=== PATIENT | male | born 1970 | race Caucasian/White ===

== ENCOUNTER 2016-11-30 21:43 | Inpatient (IN) ==
[2016-12-01] MEDS ORDERED: Albuterol 2.5 MG/3 ML NEBULIZER IH PRN (01:24)
[2016-12-01] MEDS ORDERED: SUMAtriptan succinate 50 MG TABLET PO PRN (01:24)
[2016-12-01] MEDS ORDERED: Naloxone 0.4 MG/ML INJ IVP PRN (01:25)
--- NOTE | 2016-12-01 01:35 | Internal Med History&Physical ---
Date of Encounter: 12/01/16 Time of Encounter: 01:31 Assessment and Plan (1) TAYLER (acute kidney injury) Current visit: No Status: Acute suspect pre-renal, IVF, check renal US to r/o post-renal, trend Cr (2) UTI (urinary tract infection) Current visit: Yes Status: Acute UA with pyuria, cx pend, empiric rocephin given LUTs symptoms Qualifiers: Qualified Code(s): N39.0 - Urinary tract infection, site not specified (3) Seizures Current visit: No Status: Chronic check valproate level with a.m labs given unsteadiness on feet (4) Hypertension Current visit: No Status: Chronic hold ACEI given Tayler Qualifiers: Hypertension type: essential hypertension Qualified Code(s): I10 - Essential (primary) hypertension Internal Medicine - H&P: HPI Chief complaint: light headedness History of present illness: Mr. Lane is a 46 year old male with hx of seizures, depression/anxiety, HTN who presented to the [facility] ED for symptoms of dizziness and near fall acutely yesterday. Was found to have an TAYLER, Cr 2.42 (baseline 1). He mentioned that his legs gave out and was weak yesterday. He had been fine the day prior. He denies any decreased PO intake but note of some LUTs symptoms and having issues with having to urinate. In the ED, he had a lozada placed. Past Med Surg Social Fam HX - Past Medical History Medical history: glaucoma, hypertension, seizures, other Psychiatric history: anxiety - Past Surgical History Surgical History: cholecystectomy, other - Social History Smoking Status: Current some day smoker Smokeless Tobacco Status: Yes Alcohol use: none Drug use: none - Family History Mother Hx Family Cardiac Disorders: Yes (NH, HTN, HLD) Hx Family Respiratory Disorders: No Hx Family Cancer: No Hx Family GI Disorders: No Hx Family Genitourinary Disorders: No Hx Family Endocrine Disorder: Yes (diabetes) Hx Family Musculoskeletal Disorders: No Hx Family Neuromuscular Disorders: No Hx Family Neurologic Disorders: No Hx Family HEENT Disorders: No Hx Family Autoimmune Disorders: No Hx Family Reproductive Disorders: No Hx Family Psychosocial Disorders: No Hx Family Medical Disorders: No Father Hx Family Cardiac Disorders: Yes (CVA, HTN) Hx Family Respiratory Disorders: Yes (Emphysema) Hx Family Cancer: No Hx Family GI Disorders: Yes (Hiatal Hernia) Hx Family Genitourinary Disorders: No Hx Family Endocrine Disorder: Yes (diabetes) Hx Family Musculoskeletal Disorders: No Hx Family Neuromuscular Disorders: No Hx Family Neurologic Disorders: No Hx Family HEENT Disorders: No Hx Family Autoimmune Disorders: No Hx Family Reproductive Disorders: No Hx Family Psychosocial Disorders: No Hx Family Medical Disorders: No Internal Medicine - H&P: Meds Albuterol Neb [Proventil Neb] 2.5 mg IH Q6H PRN 12/28/15 [History] Albuterol Sulfate [Proair Hfa] 2 puff IH Q4H PRN 12/28/15 [History] Allopurinol [Zyloprim 300 MG] 300 mg PO DAILY 12/28/15 [History] Amitriptyline [Elavil] 25 mg PO HS 12/28/15 [History] Atorvastatin [Lipitor] 40 mg PO HS 12/28/15 [History] Baclofen [Lioresal] 10 mg PO TID 12/28/15 [History] Citalopram Hydrobromide [Citalopram HBr] 40 mg PO DAILY 12/28/15 [History] Divalproex (12 HR) [Depakote (12 HR)] 1,000 mg PO HS 12/28/15 [History] Divalproex (12 HR) [Depakote (12 HR)] 500 mg PO QAM 12/28/15 [History] Docusate Sodium [Dok] 100 mg PO BID PRN 12/28/15 [History] Gabapentin [Neurontin] 900 mg PO TID 12/28/15 [History] Lisinopril [Zestril] 40 mg PO DAILY 12/28/15 [History] Pantoprazole Sodium [Protonix] 40 mg PO DAILY 12/28/15 [History] Ropinirole HCl [Requip] 2 mg PO HS 12/28/15 [History] SUMAtriptan Succinate [Imitrex] 100 mg PO DAILY PRN 12/28/15 [History] diazePAM [Valium] 5 mg PO BID 12/28/15 [History] Levalbuterol Neb [Xopenex Neb] 1.25 mg IH [id number] vial.neb 01/04/16 [Rx] Oxycodone HCl/Acetaminophen [Percocet 5-325 mg Tablet] 1 each PO Q6H 11/30/16 [ History] Allergies No Known Allergies Allergy (Verified 02/11/16 20:01) All Systems PM: A 10-system review of systems was performed and is negative for pertinent findings except as documented above in the HPI. Review of systems: ROS 14 point review of systems reviewed as best as possible given presentation. Pertinent positive or negative as per HPI or otherwise reviewed as negative - Constitutional Vitals: Temp Pulse Resp BP Pulse Ox 98.1 F 93 18 96/62 94 11/30/16 23:33 11/30/16 23:33 11/30/16 23:33 11/30/16 23:33 11/30/16 23:33 Exam: General - AAO x 3 Psych - Appropriate affect/speech. No agitation Eyes - JUDITH. Eye lids intact. No scleral icterus ENT - Oral mucosa pink, dentition intact. External ear clear/dry/intact. No thyromegaly Lymphatics - No cervical/inguinal lympadenopathy Neuro - No gross peripheral or central neuro deficits with intact CN 2-12 exam Heart - Sinus. RRR. S1 and S2 present. No added HS/murmurs appreciated. No elevated JVD appreciated. No calf swellings/erythema Lung - Adequate air entry b/l, No crackes/wheezes appreciated GI - Soft, non-tender. No hepatosplenomegaly/ascites. BS+ - No CVA/suprapubic tenderness or palpable bladder distension Skin - Intact. No rash/petechiae/ecchymosis. Warm extremities MSK - Joints with normal ROM. No joint swellings
[2016-12-01] MEDS: 0.9 % Sodium Chloride 1,000 ML IVC SCH ×3 (03:13→16:45)
[2016-12-01] MEDS ORDERED: Levalbuterol Neb 1.25 MG/3 ML IH SCH (04:00)
[2016-12-01 04:05] LABS: Basophils # 0.1 K/mcL (0.0-0.2); Basophils % 0.9 %; Eosinophils # 0.2 K/mcL (0.0-0.6); Eosinophils % 2.3 %; Hematocrit 46.2 % (37.5-50.1); Hemoglobin 14.6 g/dL (12.9-16.9); Immature Granulocytes % 0.8 % (0-4); Lymphocytes # 3.1 K/mcL (0.6-4.6); Lymphocytes % 39.8 %; Mean Corpuscular HGB Conc 31.6 g/dL (31.6-35.5); Mean Corpuscular Hemoglobin 30.5 pg (28.0-33.3); Mean Corpuscular Volume 96.7 fL (83.0-100.0); Monocytes % 13.2 %; Neutrophils # 3.4 K/mcL (1.6-8.9); Platelet Count 175 K/mcL (140-400); Red Blood Count 4.78 M/mcL (4.19-5.50); Red Cell Distribution Width 14.6 % (11.5-14.5)
[2016-12-01 04:10] LABS: Bilirubin,Urine Negative (Negative); Blood,Urine Trace (Negative); Clarity,Urine Cloudy (Clear); Color,Urine Yellow (Yellow); Glucose,Urine (UA) Normal (Normal); Ketones,Urine Negative (Negative); Leukocyte Esterase,Urine Negative (Negative); Nitrite,Urine Negative (Negative); PH,Urine 5.5 pH Units (5.0-8.0); Protein,Urine Trace mg/dL (Neg-Trace); Specific Gravity,Urine 1.018 (1.010-1.025); Urobilinogen,Urine Normal (Normal)
[2016-12-01 04:12] LABS: Bacteria,Urine None Seen per hpf (None-Few); Squamous Epithelial Cell,Urine Many per lpf (None-Few); WBC,Urine 15-30 per hpf (0-3)
[2016-12-01 04:16] LABS: Calcium 8.7 mg/dL (8.6-10.8); Potassium 4.3 mEq/L (3.5-4.5)
[2016-12-01 04:55] LABS: Valproate 36.71 mcg/mL (50-100)
[2016-12-01] MEDS: *HR* Heparin 5,000 UNIT/ML VIAL SQ SCH ×2 (06:02→17:43)
[2016-12-01] MEDS: diazePAM 5 MG TABLET PO SCH ×2 (09:16→20:47)
[2016-12-01] MEDS: Gabapentin 300 MG CAPSULE PO SCH ×3 (09:16→20:46)
[2016-12-01] MEDS: Divalproex (12 HR) 500 MG TABLET PO SCH (09:16)
[2016-12-01] MEDS: Baclofen 10 MG TABLET PO SCH ×3 (09:19→20:46)
[2016-12-01] MEDS: *HR* OxyCODONE/APAP 5/325 TABLET PO PRN ×3 (09:19→21:49)
--- NOTE | 2016-12-01 17:51 | Event Note ---
Date of Encounter: 12/01/16 Time of Encounter: 17:15 Patient seen and examined. On examination, patient sitting upright in bed conversing with his family. Patient endorsing pain to the left lower quadrant of his abdomen but states his pain is currently controlled. He states he has had 2 bowel movements today that were normal. Ramirez catheter in place. Urinalysis consistent with UTI-will continue Rocephin and await culture. Acute kidney injury slowly improving. Chest x-ray negative. Patient stating that when he stands up he continues to feel weak and lightheaded and dizzy. Maintain follow-up cautions. Patient stating his last seizure was 3-4 days ago and was consistent with his normal seizures. Patient is currently endorsing shortness of breath above his norm. He is currently on supplemental oxygen. He states that he wants to ask his primary care provider to set him up with oxygen. In review of his chart, patient just had PFTs per Dr. Mojica 2 months ago that revealed normal spirometry, no response to bronchodilators, lung volumes normal and was unremarkable. Chest x-ray revealing hypoinflated lungs with atelectasis, will add incentive spirometry. At home, patient is on albuterol puffer as well as albuterol nebulizer as the only treatment for his COPD at this time. Patient continues to use smokeless tobacco but also still smokes cigarettes. He did not want to discuss smoking cessation. We will obtain an abdominal CT given that the patient has left lower quadrant pain and tenderness status post 2 normal bowel movements today as well as difficulty with urination which is a new symptom for this patient. EXAMINATION: SINGLE VIEW OF THE CHEST 11/30/2016 8:26 pm HISTORY: Weakness with near syncope XR/XR chest 1V portable IMPRESSION: Hypoinflated lungs and subsegmental atelectasis. D/ / Morro Ricks MD / Morro Ricks MD Interpreting Provider: Morro Ricks MD
[2016-12-01] MEDS ORDERED: rOPINIRole 1 MG TABLET PO SCH (21:00)
[2016-12-01] MEDS ORDERED: Divalproex (12 HR) 500 MG TABLET PO SCH (21:00)
[2016-12-02] MEDS: 0.9 % Sodium Chloride 1,000 ML IVC SCH (02:15)
[2016-12-02 05:04] LABS: BUN/Creatinine Ratio 14 (6-26); Calcium 8.3 mg/dL (8.6-10.8); Carbon Dioxide 28 mEq/L (19-29); Chloride 106 mEq/L (98-109); Glucose 135 mg/dL (70-99); Osmolality,Calculated 293 (280-300); Potassium 4.6 mEq/L (3.5-4.5); Sodium 140 mEq/L (136-145); eGFR For African Americans > 60 (> 60); eGFR For Non-African Americans > 60 (> 60)
[2016-12-02 05:20] LABS: Blood Urea Nitrogen 14 mg/dL (8-26)
[2016-12-02] MEDS: *HR* Heparin 5,000 UNIT/ML VIAL SQ SCH (05:57)
[2016-12-02] MEDS: Gabapentin 300 MG CAPSULE PO SCH (08:39)
[2016-12-02] MEDS: Divalproex (12 HR) 500 MG TABLET PO SCH (08:40)
[2016-12-02] MEDS: diazePAM 5 MG TABLET PO SCH (08:40)
[2016-12-02] MEDS: Baclofen 10 MG TABLET PO SCH (08:40)
[2016-12-02] MEDS: *HR* OxyCODONE/APAP 5/325 TABLET PO PRN (10:33)
[2016-12-02 12:19] VITALS: BP 113/77
--- NOTE | 2016-12-02 13:31 | Discharge Summary ---
Date of Encounter: 12/02/16 Time of Encounter: 10:30 - Discharge Diagnosis (1) UTI (urinary tract infection) Priority: Primary Status: Ruled-out Comments: Ruled out, urine culture negative. Qualifiers: Urinary tract infection type: site unspecified Hematuria presence: with hematuria Qualified Code(s): N39.0 - Urinary tract infection, site not specified; R31.9 - Hematuria, unspecified (2) Asthma Priority: Secondary Status: Chronic Comments: No acute exacerbation. Patient is a tobacco user-he smokes and he chews tobacco , suspect more consistent with COPD than with asthma. Follow-up outpatient Qualifiers: Asthma severity: unspecified severity Asthma complication type: uncomplicated Qualified Code(s): J45.909 - Unspecified asthma, uncomplicated (3) Seizures Priority: Secondary Status: Chronic Comments: Last seizure was 4 days prior to presentation and was consistent with his regular seizures according to the patient and his . The valproic levels are low, currently takes 500 mg in the morning 1000 mg at night. Spoke to neurologist Dr. Mcfarlane who recommended 1000 mg twice a day with a recheck of levels in 1 week. Patient endorses compliance with his medications. No seizure -like activity while admitted. (4) Obstructive sleep apnea Priority: Secondary Status: Chronic (5) Hypertension Priority: Secondary Status: Chronic Comments: Controlled, follow-up outpatient Qualifiers: Hypertension type: essential hypertension Qualified Code(s): I10 - Essential (primary) hypertension (6) TAYLER (acute kidney injury) Priority: Primary Status: Resolved (7) Abdominal pain Priority: Primary Status: Resolved Comments: Abdominal CT unremarkable. Patient tolerated a regular diet while admitted. Qualifiers: Abdominal location: generalized Qualified Code(s): R10.84 - Generalized abdominal pain (8) DVT prophylaxis Priority: Primary Status: Acute Comments: Subcutaneous heparin while admitted (9) Acute respiratory failure Priority: Primary Status: Resolved Comments: Weaned to room air prior to discharge. Follow-up outpatient Qualifiers: Respiratory failure complication: hypoxia Qualified Code(s): J96.01 - Acute respiratory failure with hypoxia (10) Mold exposure Priority: Secondary Status: Chronic Comments: is concerned that the patient's symptoms could have been related to black mold exposure. She states this mole has been present in their house for several years. Unlikely, but checked IgE-follow up outpatient. - Discharge Medications Prescriptions: Divalproex (12 HR) [Depakote (12 HR)] 1,000 mg PO QAM #20 Home Medications: Albuterol Neb [Proventil Neb] 2.5 mg IH Q6H PRN 12/28/15 [History] Albuterol Sulfate [Proair Hfa] 2 puff IH Q4H PRN 12/28/15 [History] Allopurinol [Zyloprim 300 MG] 300 mg PO DAILY 12/28/15 [History] Amitriptyline [Elavil] 25 mg PO HS 12/28/15 [History] Atorvastatin [Lipitor] 40 mg PO HS 12/28/15 [History] Baclofen [Lioresal] 10 mg PO TID 12/28/15 [History] Citalopram Hydrobromide [Citalopram HBr] 40 mg PO DAILY 12/28/15 [History] Divalproex (12 HR) [Depakote (12 HR)] 1,000 mg PO HS 12/28/15 [History] Docusate Sodium [Dok] 100 mg PO BID PRN 12/28/15 [History] Gabapentin [Neurontin] 900 mg PO TID 12/28/15 [History] Lisinopril [Zestril] 40 mg PO DAILY 12/28/15 [History] Pantoprazole Sodium [Protonix] 40 mg PO DAILY 12/28/15 [History] Ropinirole HCl [Requip] 2 mg PO HS 12/28/15 [History] SUMAtriptan Succinate [Imitrex] 100 mg PO DAILY PRN 12/28/15 [History] diazePAM [Valium] 5 mg PO BID 12/28/15 [History] Oxycodone HCl/Acetaminophen [Percocet 5-325 mg Tablet] 1 each PO Q6H 11/30/16 [ History] Divalproex (12 HR) [Depakote (12 HR)] 1,000 mg PO QAM #20 12/02/16 [Rx] Allergies/Adverse Reactions: Allergies No Known Allergies Allergy (Verified 02/11/16 20:01) Procedures/tests Complete & Pending: Procedures Performed prior 72 hours Category Date Time Status CT abd pelvis wo no iv no oral [CT] Routine Cat Scan 12/01/16 17:48 Completed Date of admission: 12/01/16 01:25 Primary care physician: Nickolas Ryder MD Consults: 12/02/16 08:23 Consult to Occupational Therapy [CONS] Routine Comment: Evaluate, develop and implement POC Reason for Consult: weak, dizzy, unsteady gait Consult to Physical Therapy [CONS] Routine Comment: Evaluate, develop and implement POC Reason for Consult: weak, dizzy, unsteady gait Discharging clinician: Elva Restrepo Anticipated date of discharge: 12/02/16 - Patient Status Disposition: Home, Self-Care Condition: Fair Functional capacity at discharge: independent ambulation Overall status at discharge: patient is back to baseline - Discharge Instructions Follow Up With: Nickolas Ryder MD [Primary Care Provider] - Additional Instructions: Follow-up with primary care provider within one to 2 weeks, have Depakote levels checked within 1 week - Diet and Activity Activity: increase activity as tolerated Diet: low salt diet Hospital course: Mr. Lane is a 46 year old male with past medical history of seizures, depression/anxiety, hypertension, tobacco abuse. Patient presented to the emergency department chief complaint of dizziness and near fall that occurred on the day prior to presentation. At [facility] emergency department, patient was noted to have an acute kidney injury. He states that his legs were so weak that they almost gave out on the day prior to presentation. He denied any decreased by mouth intake but did endorse lower urinary tract symptoms and having issues with difficulty urinating. While in the emergency department, he had a Ramirez catheter placed. Workup in the emergency department notable for an abnormal urinalysis. The patient was started on ceftriaxone and admitted to the hospitalist service for further evaluation and management. While admitted, the patient complained of left lower quadrant abdominal pains abdominal CT was obtained which was unremarkable. He had 2 bowel movements on the first day of admission that were normal. He denied abdominal pain on day of discharge. His valproic acid levels were noted to be low. Spoke to Dr. Mcfarlane of neurology who recommended increasing his Depakote levels 2000 mg twice a day with a recheck and his levels in 1 week. Of note, patient endorsing compliance with his medication. His most recent seizure was 4 days prior to presentation, no seizure-like activity while admitted. His acute kidney injury resolved and he was able to tolerate a regular diet. Urine culture ended up being negative. His symptoms of dizziness and weakness also resolved. He was seen and evaluated by occupational and physical therapy but the film surmised she had no needs. He initially required supplemental oxygenation but was weaned to room air prior to discharge. Of note, patient just had PFTs per Dr. Mojica 2 months ago that revealed normal spirometry, no response to bronchodilators, lung volumes normal and was unremarkable. is concerned that this was not a urinary tract infection, that it must be exposure to the black mold and that has been present in their house for several years. Unlikely playing a role here , but obtain an IgE lab prior to [id number] outpatient for results. He was discharged home in stable condition with close outpatient follow-up recommended. ITS Impressions EXAMINATION: SINGLE VIEW OF THE CHEST 11/30/2016 8:26 pm HISTORY: Weakness with near syncope XR/XR chest 1V portable IMPRESSION: Hypoinflated lungs and subsegmental atelectasis. D/ / Morro Ricks MD / Morro Ricks MD Interpreting Provider: Morro Ricks MD Abdomen/Pelvis CT 12/01/16 17:48 IMPRESSION: 1. No acute findings within the abdomen or pelvis. No evidence of obstructive uropathy. Partial distention of the urinary bladder with Ramirez in place. 2. Colonic diverticulosis with no acute features. No secondary signs of appendicitis. D/ / 12/01/2016 20:06:20 Ceferino Metzger MD / phil Interpreting Provider: Ceferino Metzger MD - Time Spent with Patient Total time spent providing and/or coordinating discharge services: - Constitutional Vitals: Temp Pulse Resp BP Pulse Ox 97.6 F 76 17 113/77 92 12/02/16 12:17 12/02/16 12:17 12/02/16 12:17 12/02/16 12:12/02/16 12:57 General appearance: Present: A&O X 3, pleasant, no acute distress, obese, answers questions appropriately - Head Head exam: Present: atraumatic, normocephalic - Eye Eye exam: Present: PERRL, conjuntiva pink, sclera anicteric Pupils: Present: PERRL - Neck Neck exam general surgery: Present: supple, trachea midline. Absent: lymphadenopathy - Respiratory Respiratory exam: Present: decreased breath sounds. Absent: accessory muscle use, rales, respiratory distress, rhonchi, wheezes - Cardiovascular Cardiovascular exam: Present: RRR, +S1, +S2. Absent: diastolic murmur, gallop, rubs, systolic murmur - GI/Abdominal GI/Abdominal exam: Present: distended, normal bowel sounds, soft, no peritoneal signs. Absent: tenderness - Extremities Exam Extremities exam: Present: warm, radial pulses palpable and symmetrical. Absent : calf tenderness, cyanotic, pedal edema - Neurological Exam Neurological exam: Present: alert, CN II-XII intact, normal gait, oriented X3, no focal deficits, strengths equal and symetr throughout. Absent: pronater drift, facial droop, speech deficit - Skin Skin exam: Present: dry, intact, pallor, warm
[2016-12-04 08:31] LABS: Aspergillus fumigatus IgE <0.10 kU/L (<=0.34)
== END 2016-12-02 14:46 | disposition home or self-care (01) | DRG 469 ==
LOC: 3BNU
PROVIDERS: ADMIT Internal Medicine Hematology & Oncology; ATTEND Nurse Practitioner Family